=== PATIENT | male | born 1980 | race Hispanic/Latino ===

== ENCOUNTER 2017-01-30 21:51 | Emergency (ER) | payer OTHER ==
[~2017-01-30 21:51] MED LIST: ISOVUE-370 76%-LOCM 1 ML ONE
[2017-01-30] MEDS ORDERED: Adacel (T-DAP) 0.5 ML VIAL ONE (22:02)
[2017-01-30] MEDS ORDERED: Morphine 2 MG/ML SYRINGE ONE (22:04)
[2017-01-30 22:08] LABS: #Basophils 0.1 thou/uL (0.0-0.2); #Eosinphils 0.5 thou/uL (0.0-0.7); #Lymphocytes 1.8 thou/uL (1.20-3.40); #Monocytes 0.8 thou/uL (0.11-0.59); #Neutrophils 8.5 thou/uL (1.40-6.50); %Basophils 0.8 % (0.0-1.0); %Eosinophils 4.2 % (0.0-10.0); %Lymphocytes 15.1 % (21.0-51.0); %Monocytes 6.5 % (0.0-10.0); Hematocrit 46.4 % (42.0-52.0); Mean Platelet Volume 8.6 fL (7.4-10.4); Red Blood Cell (RBC) Count 5.34 mill/uL (4.70-6.10); White Blood Cell (WBC) Count 11.6 thou/uL (4.8-10.8)
[2017-01-30 22:13] LABS: Prothrombin Time 12.4 SEC (12.0-14.7)
[2017-01-30 22:14] LABS: PTT 32.4 SEC (22.9-36.1)
--- NOTE | 2017-01-30 22:14 | RAD ---
PORTABLE CHEST ONE VIEW: 01/30/17 at 9:27 p.m. HISTORY: Trauma. FINDINGS: The heart size is normal. The lungs are well expanded without focal areas of consolidation, pneumoth orax or pleural effusions. IMPRESSION: No radiographic evidence of acute cardiopulmonary process. POS: [facility]
[2017-01-30 22:15] LABS: Lactic Acid - Sepsis 2.3 mmol/L (0.5-2.2)
[2017-01-30 22:20] LABS: ALT (SGPT) 21 U/L (8-55); AST (SGOT) 22 U/L (5-34); Alkaline Phosphatase 107 U/L (40-150); Anion Gap 13 mmol/L (10-20); BUN (Urea Nitrogen) 11 mg/dL (8.9-20.6); Bilirubin, Total 0.4 mg/dL (0.2-1.2); Calc. Creatinine Clearance 0 mL/min (70-130); Calcium 9.4 mg/dL (7.8-10.44); Carbon Dioxide 24 mmol/L (22-29); Chloride 105 mmol/L (98-107); Estimated GFR-MDRD 80; Globulin 3.7 g/dL (2.4-3.5); Protein, Total 8.1 g/dL (6.0-8.3)
[2017-01-30] MEDS ORDERED: EPINEPHrine 1 MG/ML AMP ONE (22:20)
[2017-01-30] MEDS ORDERED: Lidocaine 1% (PF) 30 ML VIAL ONE (22:20)
[2017-01-30] MEDS ORDERED: Fentanyl 100 MCG/2 ML VIAL ONE (22:27)
[2017-01-30] MEDS ORDERED: Lidocaine 1.5% w/Epi 1:200K 30 ML VIAL (Epid Use) FS SCH (22:30)
--- NOTE | 2017-01-30 22:38 | CT ---
CT CHEST WITH IV CONTRAST CT ABDOMEN WITH IV CONTRAST CT PELVIS WITH IV CONTRAST CORONAL AND SAGITTAL REFORMATIONS OF THE THORACOLUMBAR SPINE 01/30/17 HISTORY: Level I trauma, 36-year-old male fell through a window and laceration down side of the chest. FINDINGS: No mediastinal hematoma or intimal flap is seen in the aorta to suggest transection. No pleural or p ericardial effusions are identified. No pneumothoraces or pulmonary contusions are seen. The liver, spleen, pancreas, adrenal glands and kidneys are intact. Gallbladder and urinary bladder also appear intact. No free air or free fluid is seen in the abdomen or pelvis. There is a fat conta ining umbilical hernia. No fracture or subluxation is seen in the abdomen or pelvis. There is a focus of contrast pooling in the left lower lateral chest wall at T11 level. IMPRESSION: 1. No CT evidence of acute intrathoracic or solid organ injury. 2. Pooling of contrast in the left lower lateral chest wall consistent with active extravasatio n/active bleeding. The findings are discussed over the telephone with the ER physician, Dr. Xena Griggs at 10:29 p.m. POS: [facility]
--- NOTE | 2017-01-31 04:16 | HP ---
CHIEF COMPLAINT: Penetrating wound to left chest, level 1 activation. HISTORY OF PRESENT ILLNESS: Patient is a 36-year-old male. He was working at home where romulo owens lives in [place]. He fell through a glass window that he was working on, sustained a laceration to his left chest wall. He drove himself here to the emergency room. He was noted to have persiste nt relatively brisk bleeding even after having driven for an hour. There was concern regarding a si gnificant penetrating wound and a level 1 activation was initiated. I responded within the appropri ate time window. Patient was in stable condition, although somewhat tachycardic. CT scan has been obtained as I arrived. He denies any symptoms other than pain at the site of the laceration. He denies loss of consciousne ss. PAST MEDICAL HISTORY: Significant for multiple sclerosis. PAST SURGICAL HISTORY: Bilateral inguinal hernia repair and appendectomy. MEDICATIONS: He takes one medication for his multiple sclerosis, the name of which I cannot remembe r. ALLERGIES: To PENICILLIN. PERSONAL/SOCIAL HISTORY: He smokes. He does not drink significant alcohol. He is , but en gaged to be and lives with a couple of his kids. He is medically discharged from the [facility] secondary to his multiple sclerosis. REVIEW OF SYSTEMS: Otherwise, unremarkable. FAMILY HISTORY: Noncontributory. PHYSICAL EXAMINATION: VITAL SIGNS: He is afebrile, pulse is 105, blood pressure is within normal limits and stable. GENERAL: He is a well-developed, well-nourished, pleasant male resting in bed, in no acute distress. He is alert and oriented x3 and cooperative. HEENT: Unremarkable. NECK: Supple. LUNGS: Clear to auscultation. CARDIAC: Regular rate and rhythm without murmur. ABDOMEN: Benign. SKIN: He has about a 4 inch transversely oriented laceration in his left chest wall. This raises a flap extending posteriorly. There is initially brisk bleeding coming from this. X-RAYS: CT scan shows that there is no injury deep to the ribs, but there is evidence of contrast w ithin the blood in the subcutaneous tissue consistent with the apparent arterial bleeding. LABORATORY DATA: Hemoglobin is 16. ASSESSMENT: Patient with a bleeding laceration of his left chest wall. PLAN: To explore the wound to obtain hemostasis and then closed the wound. DESCRIPTION OF PROCEDURE: Informed consent was obtained with the patient rolled slightly onto his r ight, his left chest wall was prepped with Betadine and locally anesthetized using 1% lidocaine with epinephrine. I extended the laceration about a 1.5 cm in each direction to be able to explore the wound. The arterial bleeding appeared to be coming from the medial aspect of the wound. This was c ontrolled with a couple of interrupted [id number] sutures of 2-0 Vicryl. This led to cessation of any of the brisk bleeding. There was minor oozing within the wound and was of negligible signif icance. The wound was then thoroughly irrigated under pressure with a liter of saline. I then plac ed a quarter inch [place] drain within the depth of the wound and brought it out through the center of the laceration. The wound was closed in layers using interrupted sutures of 3-0 Vicryl to approx imate the deeper tissues and interrupted sutures of 2-0 nylon to approximate the skin edges. The [place] n[place] drain was secured with the nylon suture also. Dry gauze dressing and tape was applied. There were no complications. The patient is stable and feels well. He is certainly safe for discharge h ome and I have asked him to return to see me in my office in 6 days, so I may remove the drain. Alis covington was instructed in wound care covering with gauze until the drainage was removed. He will be di scharged with a prescription for Cipro and tramadol.
== END 2017-01-30 23:40 | disposition home or self-care (01) ==
LOC: ERS 21:51
DX: S21.112A Laceration without foreign body of left front wall of thorax without penetration into thoracic cavity, initial encounter (principal); I10 Essential (primary) hypertension; F17.210 Nicotine dependence, cigarettes, uncomplicated; Z23 Encounter for immunization; W17.89XA Other fall from one level to another, initial encounter
CPT/HCPCS: 12031; 71010; 71260; 74177; 80053; 82150; 83605; 85025; 85610; 85730; 86850; 86900; 86901; 90471; 90715; 96365; 96374; 96375; J0171; J0690; J2001; J2270; J2405; J3010

== ENCOUNTER 2025-01-04 01:17 | Inpatient (IN) | payer OTHER, SELFPAY ==
[2025-01-04 01:59] LABS: #Basophils 0.07 10x3/uL (0.0-0.2); #Eosinophils 0.23 10x3/uL (0.0-0.7); #Monocytes 0.90 10x3/uL (0.11-0.59); #Neutrophils 10.32 10x3/uL (1.40-6.50); %Basophils 0.6 % (0.0-1.0); %Eosinophils 1.8 % (0.0-10.0); %Lymphocytes 8.6 % (21.0-51.0); %Monocytes 7.1 % (0.0-10.0); %Neutrophils 81.4 % (42.0-75.0); Hematocrit 39.5 % (42.0-52.0); Hemoglobin 13.4 g/dL (14.0-18.0); Mean Corpuscular Hemoglobin 26.9 pg (27.0-31.0); Mean Corpuscular Volume 79.3 fL (78.0-98.0); Platelet Count 389 10x3/uL (130-400); Red Blood Cell (RBC) Count 4.98 mill/uL (4.70-6.10); White Blood Cell (WBC) Count 12.67 10x3/uL (4.8-10.8)
[2025-01-04 02:23] LABS: ALT (SGPT) 27 U/L (Less than 45); AST (SGOT) 44 U/L (11-34); Albumin 4.1 g/dL (3.1-4.5); Alkaline Phosphatase 95 U/L (40-110); Anion Gap 18 mmol/L (10-20); BUN (Urea Nitrogen) 17 mg/dL (8.9-20.6); Bilirubin, Total 0.5 mg/dL (0.3-1.2); Calc. Creatinine Clearance 0 mL/min (70-130); Calcium 9.2 mg/dL (7.8-10.44); Carbon Dioxide 20 mmol/L (22-29); Chloride 106 mmol/L (98-107); Globulin 3.3 g/dL (2.4-3.5); Glucose 101 mg/dL (70-105); Potassium 4.5 mmol/L (3.5-5.1); Sodium 139 mmol/L (136-145)
[2025-01-04] MEDS ORDERED: niCARdipine 25 MG/10 ML SDV ONE (02:28)
[2025-01-04] MEDS ORDERED: niCARdipine 40MG In NaCl 40 MG/200 ML BAG IVPB SCH (03:30)
[2025-01-04] MEDS ORDERED: niCARdipine 50 MG, Admixture Fee 1 EACH in Sodium Chloride 0.9% 250 ML 230 ML IV SCH (04:00)
[2025-01-04] MEDS ORDERED: Calcium Carbonate 500 MG ChewTAB PO PRN (04:08)
[2025-01-04] MEDS ORDERED: Ondansetron PF 4 MG/2 ML Vial IVP PRN (04:08)
[2025-01-04] MEDS ORDERED: Electrolyte Replacement Protocol 1 EACH FS SCH (04:15)
[2025-01-04] MEDS ORDERED: Electrolyte Replacement Protocol 1 EACH FS PRN (05:02)
[2025-01-04 05:14] VITALS: BMI 35.9
[2025-01-04] MEDS: Losartan 25 MG TAB PO SCH (08:28)
[2025-01-04] MEDS: Carvedilol 25 MG TAB PO SCH (08:28)
[2025-01-04] MEDS: Spironolactone 25 MG TAB PO SCH (08:28)
[2025-01-04] MEDS: Acetaminophen 325 MG TAB PO PRN (19:32)
[2025-01-05] MEDS: hydrALAZINE 20 MG/ML VIAL SLOW IVP PRN (02:52)
[2025-01-05 04:38] LABS: #Basophils 0.06 10x3/uL (0.0-0.2); #Eosinophils 0.28 10x3/uL (0.0-0.7); #Monocytes 0.56 10x3/uL (0.11-0.59); #Neutrophils 6.25 10x3/uL (1.40-6.50); %Basophils 0.7 % (0.0-1.0); %Eosinophils 3.3 % (0.0-10.0); %Lymphocytes 13.8 % (21.0-51.0); %Monocytes 6.7 % (0.0-10.0); %Neutrophils 74.8 % (42.0-75.0); Hematocrit 39.4 % (42.0-52.0); Hemoglobin 12.6 g/dL (14.0-18.0); Mean Corpuscular Hemoglobin 26.2 pg (27.0-31.0); Mean Corpuscular Volume 81.9 fL (78.0-98.0); Platelet Count 357 10x3/uL (130-400); Red Blood Cell (RBC) Count 4.81 mill/uL (4.70-6.10); White Blood Cell (WBC) Count 8.36 10x3/uL (4.8-10.8)
[2025-01-05 05:01] LABS: ALT (SGPT) 21 U/L (Less than 45); AST (SGOT) 27 U/L (11-34); Albumin 3.6 g/dL (3.1-4.5); Alkaline Phosphatase 78 U/L (40-110); Anion Gap 13 mmol/L (10-20); BUN (Urea Nitrogen) 21 mg/dL (8.9-20.6); Bilirubin, Total 0.6 mg/dL (0.3-1.2); Calc. Creatinine Clearance 75 mL/min (70-130); Calcium 8.5 mg/dL (7.8-10.44); Carbon Dioxide 21 mmol/L (22-29); Chloride 109 mmol/L (98-107); Globulin 2.9 g/dL (2.4-3.5); Glucose 87 mg/dL (70-105); Magnesium 2.3 mg/dL (1.6-2.6); Potassium 3.3 mmol/L (3.5-5.1); Sodium 140 mmol/L (136-145)
[2025-01-05] MEDS: Losartan 25 MG TAB PO SCH (09:12)
[2025-01-05] MEDS: Carvedilol 25 MG TAB PO SCH (16:46)
[2025-01-05] MEDS: cloNIDine 0.1 MG TAB PO PRN (21:03)
[2025-01-06] MEDS: Losartan 25 MG TAB PO SCH (09:21)
[2025-01-07] MEDS: NIFEdipine XL 30 MG ER.TAB PO SCH (10:07)
[2025-01-08 05:56] LABS: Anion Gap 15 mmol/L (10-20); BUN (Urea Nitrogen) 26 mg/dL (8.9-20.6); Calc. Creatinine Clearance 87 mL/min (70-130); Calcium 8.8 mg/dL (7.8-10.44); Carbon Dioxide 20 mmol/L (22-29); Chloride 109 mmol/L (98-107); Glucose 91 mg/dL (70-105); Potassium 4.2 mmol/L (3.5-5.1); Sodium 140 mmol/L (136-145)
[2025-01-08] MEDS: NIFEdipine XL 30 MG ER.TAB PO SCH (08:12)
[2025-01-08 10:52] VITALS: BP 146/80; TEMP 98.4
[2025-01-09] MEDS ORDERED: NIFEdipine XL 60 MG ER.TAB PO SCH (09:00)
== END 2025-01-08 14:10 | disposition home or self-care (01) | DRG 280 ==
LOC: ERS 01:17 → ERHOLD 03:35 → CCU 05:10 → T4-A 01-06 19:49
PROVIDERS: ADMIT Student in an Organized Health Care Education/Training Program; ATTEND Student in an Organized Health Care Education/Training Program
DX: I16.1 Hypertensive emergency (principal); I50.33 Acute on chronic diastolic (congestive) heart failure; I21.A1 Myocardial infarction type 2; N17.9 Acute kidney failure, unspecified; Z88.0 Allergy status to penicillin; G35 Multiple sclerosis; I11.0 Hypertensive heart disease with heart failure; Z87.891 Personal history of nicotine dependence; Z91.148 Patient's other noncompliance with medication regimen for other reason; Z79.899 Other long term (current) drug therapy
CPT/HCPCS: 36415; 70450; 71045; 76770; 80048; 80053; 83735; 83880; 84484; 85025; 93005; 93306; 93798; 96365; 96366; 96375; J0360